=== PATIENT | male | born 1995 | race Hispanic/Latino ===

== ENCOUNTER → 2025-08-05 | Outpatient (CLI) | payer OTHER ==
--- NOTE | 2025-08-06 03:07 | HMCIMG ---
EXAM: CT KNEE LEFT WITHOUT IV CONTRAST CLINICAL HISTORY: Other specified acquired deformities of musculoskeletal system. TECHNIQUE: Axial CT images of the left knee were obtained without IV contrast administration. Multiplanar reconstructions. The protocol utilizes one or more of the following dose reduction techniques: automated exposure control, adjustment of mA and/or kV according to patient size, and/or use of iterative reconstruction technique. Total exam DLP is 541. CONTRAST: NONE COMPARISON: None FINDINGS: BONES: There is a 4 x 2 mm sized hyperdense focus in the subarticular region of the medial tibial condyle with another similar focus measuring 2 x 1.5 mm, suggestive of bone islands. There is irregularity of the weightbearing surface of the medial femoral condyle with subchondral sclerosis, with a separate 3 x 1 mm sized osteochondral fragment adjacent to it. 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 Further evaluation with MRI is recommended. No fracture or dislocation. No osteoblastic, osteolytic or destructive lesion observed. JOINTS: Preserved joint space. No joint effusion. MUSCLES: Normal bulk. Deep fat planes are preserved. SOFT TISSUES: No soft tissue swelling, mass or fluid collection. IMPRESSION: 1. Irregularity of the weightbearing surface of the medial femoral condyle with subchondral sclerosis and an adjacent 3 x 1 mm osteochondral fragment, suggestive of stage III/IV osteochondritis dissecans. Further evaluation with MRI is recommended. /[place]
== END | disposition home or self-care (01) ==
LOC: RAH 13:03
PROVIDERS: ATTEND Student in an Organized Health Care Education/Training Program
DX: M95.8 Other specified acquired deformities of musculoskeletal system (principal)
CPT/HCPCS: 73700